=== PATIENT | female | born 1965 | race Caucasian/White ===

== ENCOUNTER 2017-12-25 19:48 | Emergency (ER) | payer OTHER ==
[~2017-12-25] VITALS: Ht 157.5 cm; Wt 65.8 kg
[~2017-12-25 19:48] MED LIST: IBUPROFEN 800800 M1 PO; NORCO 5-325 TA1 EACH PO
[2017-12-25 20:20] LABS: INFLUENZA A ANTIGEN None Detected (None Detect)
[2017-12-25] MEDS ORDERED: PROAIR HFA8.5 GM INH (20:21)
[2017-12-25] MEDS ORDERED: ZPAK PO (20:21)
[2017-12-25] MEDS ORDERED: TESSALON PERLE100 MG PO (20:21)
[2017-12-25] MEDS ORDERED: MEDROLDOSEPACK PO (20:21)
[2017-12-25] MEDS ORDERED: ROBITUSSIN100 MG/53 PO (20:22)
[2017-12-25 20:55] VITALS: BP 115/61
== END 2017-12-25 20:56 | disposition home or self-care (01) ==
LOC: M.ERS 19:48
PROVIDERS: Emergency Medicine
DX: J20.9 Acute bronchitis, unspecified (principal); J10.1 Influenza due to other identified influenza virus with other respiratory manifestations; Z88.5 Allergy status to narcotic agent; Z88.0 Allergy status to penicillin; Z88.8 Allergy status to other drugs, medicaments and biological substances; Z88.7 Allergy status to serum and vaccine

== ENCOUNTER 2019-02-02 10:31 | Inpatient (IN) | payer OTHER ==
[~2019-02-02] VITALS: Ht 157.5 cm; Wt 64.9 kg
[~2019-02-02 10:31] MED LIST changes: +MEDROLDOSEPACK PO; +PROAIR HFA8.5 GM INH; +ROBITUSSIN100 MG/53 PO; +TESSALON PERLE100 MG PO; +ZPAK PO
[2019-02-02 10:34] VITALS: BP 106/54
[2019-02-02 10:57] LABS: URINE BILIRUBIN NEGATIVE (Negative); URINE BLOOD TRACE (Negative); URINE CLARITY CLEAR; URINE COLOR YELLOW; URINE GLUCOSE-RANDOM NEGATIVE (Negative); URINE KETONES TRACE (Negative); URINE LEUKOCYTES-REFLEX NEGATIVE (Negative); URINE NITRITE-REFLEX NEGATIVE (Negative); URINE PROTEIN NEGATIVE (Negative); URINE UROBILINOGEN 0.2 E.U./dl (0.2-1.0)
[2019-02-02 11:06] LABS: ABSOLUTE BASOPHILS 0.1 thou/uL (0.0-0.2); ABSOLUTE LYMPHOCYTES 1.5 thou/uL (0.8-5.3); ABSOLUTE MONOCYTES 0.4 thou/uL (0.0-1.2); ABSOLUTE NEUTROPHILS 3.7 thou/uL (1.6-8.1); EOSINOPHILS 0.6 %; HEMATOCRIT 37.3 % (37.0-47.0); HEMOGLOBIN 12.7 gm/dL (12.0-15.0); LYMPHOCYTES 26.7 %; MCH 29.9 pg (26.0-34.0); MCHC 34.1 g/dL (28.0-37.0); MCV 87.5 fL (80.0-100.0); MONOCYTES 6.3 %; MPV 7.6 fl. (7.2-11.1); NUCLEATED RBCS 0 /100WBC; PLATELET COUNT* 300 thou/uL (150-400); POLYS 65.4 %; RBC 4.26 mil/uL (4.20-5.00); WBC 5.6 thou/uL (4.0-11.0)
[2019-02-02 11:26] LABS: ANION GAP 8 mmol/L (7-16); BUN 12 mg/dL (7-18); CALCIUM 6.9 mg/dL (8.5-10.1); CHLORIDE 113 mmol/L (98-107); CO2 24 mmol/L (21-32); CREATININE 0.5 mg/dL (0.6-1.3); GLUCOSE 68 mg/dL (70-99); SODIUM 145 mmol/L (136-145); TROPONIN-I LEVEL <0.06 ng/mL (<0.06)
[2019-02-02 11:27] LABS: POTASSIUM 2.7 mmol/L (3.5-5.1)
[2019-02-02 11:28] LABS: ALBUMIN 2.7 g/dL (3.4-5.0); ALKALINE PHOSPHATASE 31 U/L (46-116); LIPASE 95 U/L (73-393); NT-PRO BRAIN NAT PEPTIDE 78 pg/mL (<300); SGOT 16 U/L (15-37); SGPT 16 U/L (30-65); TOTAL BILIRUBIN 0.5 mg/dL (<0.1-1.0); TOTAL PROTEIN 5.2 g/dL (6.4-8.2)
[2019-02-02 14:24] VITALS: BP 106/54
[2019-02-02 15:10] VITALS: BP 102/67
[2019-02-02 15:53] VITALS: BP 113/63
--- NOTE | 2019-02-02 16:29 | NUR ---
PT IS NEW ADMISSION FROM ER.RECEIVED REPORT AND ASSUMED CARE OF PT AT 1415.PT IS A/OX4.TRACING SB-SR ON THE MONITOR.VSS.PT COMPLAINS OF DIZZINESS.NO PAIN AND NO EDEMA.NO SKIN ISSUES.IV PATENT WITH IV FLUIDS INFUSING. FALL SHEET SIGNED AND CHARTED.ALL ADMISSION PROCEDURE COMPLETED.CALL LIGHT AND FALL PRECAUTIONS IN PLACE.HRLY ROUNDING DONE.WILL CONTINUE TO MONITOR.
--- NOTE | 2019-02-02 16:30 | EKG ---
[place] [address] ELECTROCARDIOGRAM REPORT Name: KIRK KIM Room: [address] ADM IN M.R.#: [id number] Admission: 02/02/19 Attend Phys: Bharti Orozco MD Discharge: Date of : 67 Report #: [id number] THIS REPORT FOR: //name// [facility] ED Test Date: 2019-02-02 Test Time: 10:58:37 Pat Name: KIRK KIM Department: Room: [facility] Gender: F Safe Expert: Cheng OCHOA : 1965 Requested By: Tg Reyes Order Number: [id number] MD: Avni Crain Measurements Intervals [place] Rate: 66 P: 48 MI: 178 QRS: 69 QRSD: 83 T: 67 QT: 391 QTc: 410 Interpretive Statements Sinus rhythm Nonspecific T abnormalities, lateral leads No previous ECG available for comparison Electronically Signed On 02-02-2019 16:30:25 CDT by Avni Crain [email or web address] <ELECTRONICALLY SIGNED> By: Avni Crain MD, [facility] 02/02/19 1630 1058 1058 Avni Crain MD, [facility] /EPI
--- NOTE | 2019-02-02 18:26 | NUR ---
VSS.PT STILL FEELS DIZZY AND LETHERGIC.A/OX4.TRACING SR ON THE MONITOR.IV PATENT WITH FLUIDS INFUSING AT 120ML/HR.2 DOSE K REPLACED.FALL PRECAUTIONS IN PLACE FOR SAFETY.NO PAIN ,NO COMPLAINS OF NAUSEA AND VOMITING.HRLY ROUNDING DONE.NO ANY FRESH COMPLAINS FROM PT SIDE.WILL CONTINUE TO MONITOR.
--- NOTE | 2019-02-02 18:39 | NUR ---
THIS NURSE REVIEWED ORIENTEE NURSE LUNDBERG'S CHARTING AND NURSING NOTES AND AGREES WITH INFORMATION.
[2019-02-02 19:15] VITALS: BP 101/59; BP 106/61; BP 99/54
--- NOTE | 2019-02-02 23:30 | NUR ---
ASSUMED CARE OF PATIENT AT THIS TIME FROM ANGELIC-RN. AGREE WITH ELECTRONIC SHIFT ASSESSMENT CHARTED BY ANGELIC. DENIES NEEDS AT PRESENT TIME. CALL LIGHT IN REACH, WILL CONTINUE TO MONITOR.
[2019-02-03] VITALS: BP 90/45
[2019-02-03 04:00] VITALS: BP 93/51
[2019-02-03 04:45] LABS: HEMATOCRIT 31.1 % (37.0-47.0); MCH 29.8 pg (26.0-34.0); MCHC 33.9 g/dL (28.0-37.0); MCV 87.8 fL (80.0-100.0); MPV 7.6 fl. (7.2-11.1); RBC 3.55 mil/uL (4.20-5.00); RDW-CV 13.3 % (10.5-14.5); WBC 4.5 thou/uL (4.0-11.0)
[2019-02-03 04:55] LABS: HEMOGLOBIN 10.6 gm/dL (12.0-15.0)
[2019-02-03 05:03] LABS: CALCIUM 7.9 mg/dL (8.5-10.1); CREATININE 0.8 mg/dL (0.6-1.3); MAGNESIUM 1.8 mg/dL (1.8-2.4); POTASSIUM 4.6 mmol/L (3.5-5.1)
--- NOTE | 2019-02-03 07:13 | NUR ---
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
[2019-02-03 08:30] VITALS: BP 92/50
--- NOTE | 2019-02-03 10:00 | NUR ---
RECEIVED REPORT AND ASSUMED CARE OF AT 0730.PT IS A/OX4.PT BP REMAINS SOFT IN THE 90s/50s.PT STILL FEELING DIZZY.ON ROOM AIR.PT MADE MED SURG STATUS.IV PATENT WITH FLUIDS INFUSING AT 120ML/HR.UP STAND BY ASSIST.PT IS HIGH FALL RISK PRECAUTIONS FOR SAFETY.NO COMPLAINTS OF NAUSEA AND VOMITING.PT COMLAINS OF HEADACHE,HEADACHE MANAGED BY MEDS .CALL LIGHT AND FALL PRECAUTIONS IN PLACE.WILL CONTINUE TO MONITOR.
--- NOTE | 2019-02-03 11:09 | CON ---
[address] [address] CONSULTATION Name: KIRK KIM Room: [address] IN .R.#: [id number] Admission: 02/02/19 Attend Phys: Bharti Orozco MD Discharge: Date of : 67 Report #: [id number] THIS REPORT FOR: //name// CC: JUNE physician/PCP Bharti Orozco DATE OF SERVICE: 02/02/2019 HISTORY OF PRESENT ILLNESS: The patient is a 53-year-old female who presents with vertigo. The patient noticed these symptoms yesterday and when she woke up, they seemed worse. They are present whether she lies flat or turns her head. However, she can turn her head to the right or left and she is dizzy. Today, she also had a syncopal episode where she fell into her dresser. She has never had these types of symptoms before. She has no hearing loss or ringing of her ears. PAST MEDICAL HISTORY: Negative. PAST SURGICAL HISTORY: section, appendectomy, left oophorectomy. MEDICATIONS: None. ALLERGIES: CODEINE, HYDROCODONE, HYDROCORTISONE, MENTHOL, MORPHINE, PENICILLIN, TETANUS, TRIPROLIDINE, PSEUDOEPHEDRINE, PHENYLPROPANOLAMINE, DIPHENHYDRAMINE, CLEMASTINE. VITAL SIGNS: Temperature 36.9, pulse rate 69, respiratory rate 16, blood pressure 106/54, bedside pulse oximetry 96%. LABORATORY WORK: Hematology: White blood cell count 5.6, hemoglobin 12.7, hematocrit 37.2, MCV 87.5, platelet count 300,000. Urinalysis, trace ketones, trace blood. Chemistry: Sodium 145, potassium 2.7, chloride 113, carbon dioxide 24, BUN 12, creatinine 0.5, glucose 68, calcium 6.9. Liver functions normal. B12 380, TSH 0.969. RADIOLOGY: CT scan of the head negative. NEUROLOGIC: Cranial nerves 2-12 are grossly intact. Motor exam demonstrates symmetrical strength in all 4 extremities with tone and bulk normal. Reflexes are symmetrical throughout. Coordination reveals intact [id number]. Gait was not tested. IMPRESSION AND PLAN: This patient has vertigo. I explained to the patient that we do not have diagnostic testing available in the hospital to determine whether this vertigo is central or peripheral in nature; however, a bilateral Gustavo maneuver can be done by Physical Therapy. This may take the vertigo away, [place] [address] CONSULTATION Name: KIRK KIM Room: [address]#: [id number] Admission: 02/02/19 Attend Phys: Bharti Orozco MD Discharge: Date of : 67 Report #: [id number] if it does not, then she can be referred as an outpatient to either hearing imbalance in [facility] or [facility] [place] in [place]. After the Gustavo maneuver, she should remain sitting up overnight. She should not bend forward at the waist. I have reviewed the patient's lab work. Her B12 is 388. I have ordered a B12 injection for today and tomorrow. The patient told me that orthostatic blood pressures were done in the Emergency Room. Unfortunately, I do not see where this is documented in the chart and have asked the nurse to repeat these, although they may be of questionable benefit since the patient is now on IV fluids. I thank you for your kind referral of the patient. <ELECTRONICALLY SIGNED> By: Nithya Rojas DO 02/03/19 1109 1435 1100Nithya Rojas DO /nt
[2019-02-03 12:00] VITALS: BP 85/41
[2019-02-03 12:49] VITALS: BP 92/55
--- NOTE | 2019-02-03 18:13 | NUR ---
PT IS A/0X4.PT FELT DIZZINESS THROUGHTOUT THE DAY.MEDSURG STATUS.ON RA.IV PATENT ON LAC WITH FLUID INFUSING.ANIVAL MEDRANO PERFORMED ON PT TODAY .ZOFRAN IV PRN DOSE BEFORE PROCEDURE TO PREVENT NAUSEA.PT IS RESTING IN HER ROOM WITH CALL LIGHT AND FALL PRECAUTIONS IN PLACE FOR SAFETY.NO COMPLAINTS OF NAUSEA AND VOMITING.WILL CONTINUE TO MONITOR FOR REST OF THE SHIFT.
--- NOTE | 2019-02-03 18:22 | NUR ---
THIS NURSE REVIEWED KARO LUNDBERG'S CHARTING AND NURSING NOTES AND AGREES WITH INFORMATION.
[2019-02-03 19:10] VITALS: BP 97/51
--- NOTE | 2019-02-03 22:00 | NUR ---
INITIAL ASSESSMENT COMPLETED CHARTED. VSS. NEW ORDERS FOR IBUPROFEN RECEIVED AND GIVEN PER EMAR. PT DENIES N/V/D. PT CONTINUES TO HAVE SOME DIZZINESS. IVF INFUSING ORDERED. HOURLY ROUNDING FOR PT SAFETY. CLWR.
[2019-02-04] VITALS: BP 87/54
[2019-02-04 02:24] VITALS: BP 93/44
[2019-02-04 04:00] VITALS: BP 135/66
[2019-02-04 04:59] LABS: HEMATOCRIT 29.7 % (37.0-47.0); MCH 29.8 pg (26.0-34.0); MCHC 33.6 g/dL (28.0-37.0); MCV 88.7 fL (80.0-100.0); RBC 3.35 mil/uL (4.20-5.00); RDW-CV 13.3 % (10.5-14.5); WBC 4.6 thou/uL (4.0-11.0)
[2019-02-04 05:39] LABS: CALCIUM 8.4 mg/dL (8.5-10.1); MAGNESIUM 1.9 mg/dL (1.8-2.4); POTASSIUM 4.1 mmol/L (3.5-5.1)
[2019-02-04 08:11] VITALS: BP 93/56
[2019-02-04] MEDS ORDERED: TRANSDERM-SCOP1 EACH TRANSDERM (10:09)
[2019-02-04] MEDS ORDERED: MECLIZINE HCL12.5 MG PO (10:09)
[2019-02-04] MEDS ORDERED: ZOFRAN ODT4 MG DISSOLVE (10:14)
[2019-02-04 11:55] VITALS: BP 93/56
--- NOTE | 2019-02-04 12:00 | NUR ---
RECEIVED REPORT AND ASSUMED CARE OF PT AT 0730.PT IS A/OX4.MED SURG STATUS.ON RA.NO COMPLAINTS OD NAUSEA AND VOMITING.IV PATENT ON LEFT FA WITH FLUID INFUSING.NO PAIN.PLAN FOR DISCHARGE TODAY.HRLY ROUNDING COMPLETED.CALL LIGHT AND FALL PRECAUTIONS IN PLACE.WILL CONTINUE TO MONITOR. PT OK FOR DISCHAGRE.DISCHAGRE PAPER WORK COMPLETED.NEW SCRIPTS PRINTED AND GIVEN TO PT.DISCHARGE EDUCATION GIVEN ON FOLLOW UP AND MEDICATIONS.ALL PERSONAL BELONGINGS HANDED OVET TO PT.PT WHEELED TO HER CAR BY NURSING STAFF.
--- NOTE | 2019-02-04 13:30 | NUR ---
THIS NURSE REVIEWED KARO LUNDBERG'S CHARTING AND NURSING NOTE AND AGREES WITH INFORMATION.
== END 2019-02-04 12:46 | disposition home or self-care (01) | DRG 316 ==
LOC: M.ERS 10:31 → M.TBA-ER 12:49 → M.2W 12:49
PROVIDERS: Physician Assistant; ADMIT Internal Medicine
DX: I95.9 Hypotension, unspecified (principal); H81.90 Unspecified disorder of vestibular function, unspecified ear; E86.0 Dehydration; E87.6 Hypokalemia; E16.2 Hypoglycemia, unspecified; F17.210 Nicotine dependence, cigarettes, uncomplicated; Z90.49 Acquired absence of other specified parts of digestive tract; Z88.1 Allergy status to other antibiotic agents; Z88.5 Allergy status to narcotic agent; Z88.0 Allergy status to penicillin; Z88.7 Allergy status to serum and vaccine; Z98.891 History of uterine scar from previous surgery; Z88.8 Allergy status to other drugs, medicaments and biological substances; Z90.721 Acquired absence of ovaries, unilateral

== ENCOUNTER 2021-11-10 08:37 | Emergency (ER) | payer OTHER ==
[~2021-11-10] VITALS: Ht 157.5 cm; Wt 66.7 kg
[~2021-11-10 08:37] MED LIST changes: +MECLIZINE HCL12.5 MG PO; +TRANSDERM-SCOP1 EACH TRANSDERM; +ZOFRAN ODT4 MG DISSOLVE
--- NOTE | 2021-11-10 11:22 | EKG ---
[place] [address] ELECTROCARDIOGRAM REPORT Name: KIRK HERNANDEZ Room: [facility]#: [id number] Admission: 11/10/21 Attend Phys: Discharge: Date of : 67 Date of Service: 11/10/21 1042 Report #: [id number] THIS REPORT FOR: //name// [facility] ED Test Date: 2021-11-10 Test Time: 10:42:03 Pat Name: KIRK HERNANDEZ Department: Room: Gender: Release And Technical Records Clerk: [facility] : 1965 Requested By: Veronica Gandara Order Number: [id number] MD: Avni Crain Measurements Intervals [place] Rate: 64 P: 48 MD: 186 QRS: 65 QRSD: 83 T: 57 QT: 388 QTc: 401 Interpretive Statements Sinus rhythm Compared to ECG 02/02/2019 10:58:37 T-wave abnormality no longer present Electronically Signed On 11-10-2021 11:21:55 OCEANOLOGY TEACHER by Avni Crain [email or web address] <ELECTRONICALLY SIGNED> By: Avni Crain MD, [facility] 11/10/21 1121 41 41 Avni Crain MD, FAC /EPI
[2021-11-10] MEDS ORDERED: DOXYCYCLINE 10100 MG PO (11:25)
[2021-11-10] MEDS ORDERED: MUCINEX600 MG PO (11:25)
[2021-11-10 11:33] VITALS: BP 143/80
== END 2021-11-10 11:33 | disposition home or self-care (01) ==
LOC: M.ERS 08:37
DX: U07.1 COVID-19 (principal); Z90.49 Acquired absence of other specified parts of digestive tract; Z98.890 Other specified postprocedural states; Z88.5 Allergy status to narcotic agent; Z88.8 Allergy status to other drugs, medicaments and biological substances; Z88.0 Allergy status to penicillin; Z88.6 Allergy status to analgesic agent